=== PATIENT | male | born 1995 | race Caucasian/White ===

== ENCOUNTER 2019-06-19 07:49 | Emergency (ER) | payer OTHER, SELFPAY ==
[2019-06-19 07:50] VITALS: BP 143/90; PULSE 75; RESP 24; TEMP 36.5; O2SAT 100; BMI 26.6
[2019-06-19 08:15] LABS: Add Manual Diff / Slide Review NO; Basophils Absolute Auto 0 /uL (0-100); Basophils Percent Auto 0.6 % (0-2); Eosinophils Absolute Auto 300 /uL (0-450); Eosinophils Percent Auto 3.4 % (2-4); Hematocrit 46.5 % (41-53); Hemoglobin 16.7 g/dL (13.5-17.5); Lymphocytes Absolute Auto 1800 /uL (1100-4500); Lymphocytes Percent Auto 24.9 % (25-40); Mean Corpuscular HGB Conc 35.9 % (30-36); Mean Corpuscular Hemoglobin 33.4 PG (26-34); Mean Corpuscular Volume 93.1 fL (80-100); Monocytes Absolute Auto 400 /uL (0-900); Monocytes Percent Auto 5.8 % (3-14); Neutrophils Absolute Auto 4800 /uL (1500-7000); Neutrophils Percent Auto 65.3 % (50-75); Platelet Count 248 X10^3/uL (150-400); Red Blood Cell Count 4.99 X10^6/uL (4.5-5.9); Red Cell Distribution Width 13.1 % (11.6-14.8); White Blood Cell Count 7.4 X10^3/uL (4.5-11.0)
[2019-06-19 08:25] LABS: Alanine Aminotransferase 24 IU/L (<50); Albumin Globulin Ratio 2.1 (1.0-2.8); Alkaline Phosphatase 58 U/L (38-126); Aspartate Aminotransferase 26 IU/L (17-59); BUN Creatinine Ratio 16.7 (6-22); Bilirubin Total 1.2 mg/dL (0.2-1.3); Blood Urea Nitrogen 15 mg/dL (9-20); Calcium 9.8 mg/dL (8.4-10.2); Carbon Dioxide 25 mmol/L (22-32); Chloride 105 mmol/L (98-107); Estimated Glomerular Filt Rate > 60.0 mL/min (>60); Globulin 2.4 g/dL (1.7-4.1); Glucose 128 mg/dL (70-100); HEMOLYSIS < 15 (0-50); Lipase 59 U/L (23-300); Potassium 4.1 mmol/L (3.4-5.1); Sodium 142 mmol/L (137-145); Total Protein 7.4 g/dL (6.3-8.2)
--- NOTE | 2019-06-19 08:37 | ED_ITS ---
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 On his way to work and had the acute onset of left-sided flank pain radiating to the left lower quadrant and down into the testicles. Described as severe. He presents to the emergency room trying to be cooperative however writing and pain, pale due to the pain and diaphoretic. He denies any previous history of kidney stones and notes that he has not recently been sick at all. Past medical history is otherwise completely unremarkable Related Data Previous Rx's Medication Instructions Recorded oxycodone-acetaminophen 1 tab PO Q8H PRN #10 tab 06/19/19 Allergies Allergy/AdvReac Type Severity Reaction Status Date / Time No Known Drug Allergies Allergy Verified 06/19/19 08:05 Review of Systems Review of Systems Narrative: Denies ? fever ? cough ? cold ? chills ? chest pain ? dyspnea ? orthopnea ? wheezing ? abdominal pain ? change to bowel or bladder habits ? nausea vomiting ? skin changes ? rashes Patient History Social History Smoking Status: Current every day smoker Smoking Status: Current every day smoker tobacco type: vaping alcohol intake frequency: a few times a week Alcohol type: beer and hard liquor Substance Use Type: does not use Exam Narrative Exam Narrative: General: Healthy appearing, in severe distress. Able to give a complete and coherent history. Well-nourished well-developed. Pale and diaphoretic due to pain HEENT: Moist mucous membranes, normal sclera with reactive pupils, Neck: No JVD, supple Respiratory: Lungs are clear to auscultation, no wheezing no rales no rhonchi. Full and symmetrical air movement Cardiac: Tachycardia with regular rhythm, no murmurs, no bruits Abdomen: Soft nontender to palpation, good bowel tones, left flank pain radiating down into the left groin. Skin: Warm and dry, no rashes Neurologic: Grossly neurologically intact with no obvious asymmetries or abnormalities Extremities: No trauma, well perfused Psych: Cooperative, appropriate insight and affect Initial Vital Signs Initial Vital Signs: Vital Signs Temperature 97.7 F 06/19/19 07:50 Pulse Rate 75 06/19/19 07:50 Respiratory Rate 24 06/19/19 07:50 Blood Pressure 143/90 H 06/19/19 07:50 Pulse Oximetry 100 06/19/19 07:50 Course Orders Ordered: ED Orders 06/19/19 07:57 Complete Blood Count AUTO DIFF Stat Comprehensive Metabolic Panel Stat Lipase Stat 06/19/19 08:24 Urine Microscopic Stat 06/19/19 09:28 CT kidney ureter bladder (KUB) Stat Sodium Chloride (Normal Saline 0.9%) 1,000 mls @ 150 mls/hr IV CONT ELMA Last Infusion: 06/19/19 11:36 Dose: 0 mls/hr Documented by: Admin: 06/19/19 08:42 Dose: 150 mls/hr Documented by: JNEN Discontinued Medications Hydromorphone HCl (Dilaudid) 0.5 mg IV NOW ONE Stop: 06/19/19 08:05 Last Admin: 06/19/19 09:28 Dose: 0.5 mg Documented by: MARQUISE Ketorolac Tromethamine (Toradol) 15 mg IV NOW ONE Stop: 06/19/19 08:05 Last Admin: 06/19/19 08:42 Dose: 15 mg Documented by: JENN Ondansetron HCl (Zofran) 4 mg IV NOW ONE Stop: 06/19/19 08:05 Last Admin: 06/19/19 08:42 Dose: 4 mg Documented by: JENN Oxycodone/Acetaminophen (Percocet 5/325) 1 tab PO NOW ONE Stop: 06/19/19 12:18 Reevaluation(s) Reevaluation #1: Toradol was only partially effective in helping with his pain. Will advance to Dilaudid. He will be heading to the CT scanner shortly Reevaluation #2: Feeling significantly better. Still deep internal ache. Safe for home discharge. Reviewed findings of CT scan and suggestion of passed kidney stone with no evidence of retained stones or more to come immediately. Questions were answered. Time: 12:19 Vital Signs Vital signs: Vital Signs - 8 hr 06/19/19 07:50 06/19/19 09:31 06/19/19 11:49 Temperature 97.7 F Pulse Rate 75 70 78 Respiratory Rate 24 18 18 Blood Pressure 143/90 H Blood Pressure [Right Arm] 140/83 135/66 Pulse Oximetry 100 100 98 06/19/19 12:00 Temperature Pulse Rate 80 Respiratory Rate 17 Blood Pressure Blood Pressure [Right Arm] 131/73 Pulse Oximetry 100 MDM - Abdominal Pain Differential Diagnosis Differential diagnosis: Likely abdominal pain, acute appendicitis, calculus of kidney, constipation, diverticulitis, gastroenteritis and small bowel obstruction Medical Records Attestation: I reviewed the patient's medical records. Lab Data Attestation: I reviewed the patient's lab results. Result diagrams: 06/19/19 07:57 06/19/19 07:57 Labs: Lab Results 06/19/19 06/19/19 06/19/19 Range/Units 07:57 07:57 08:24 WBC 7.4 (4.5-11.0) X10^3/uL RBC 4.99 (4.5-5.9) X10^6/uL Hgb 16.7 (13.5-17.5) g/dL Hct 46.5 (41-53) % MCV 93.1 (80-100) fL MCH 33.4 (26-34) PG MCHC 35.9 (30-36) % RDW 13.1 (11.6-14.8) % Plt Count 248 (150-400) X10^3/uL Neut % (Auto) 65.3 (50-75) % Lymph % (Auto) 24.9 L (25-40) % Merrick % (Auto) 5.8 (3-14) % Eos % (Auto) 3.4 (2-4) % Baso % (Auto) 0.6 (0-2) % Neut # (Auto) 4800 (5438-2060) /uL Lymph # (Auto) 1800 (2160-1483) /uL Merrick # (Auto) 400 (0-900) /uL Eos # (Auto) 300 (0-450) /uL Baso # (Auto) 0 (0-100) /uL Sodium 142 (137-145) mmol/L Potassium 4.1 (3.4-5.1) mmol/L Chloride 105 (98-107) mmol/L Carbon Dioxide 25 (22-32) mmol/L BUN 15 (9-20) mg/dL Creatinine 0.90 (0.66-1.25) mg/dL Estimated GFR > 60.0 (>60) mL/min BUN/Creatinine Ratio 16.7 (6-22) Glucose 128 H (70-100) mg/dL Calcium 9.8 (8.4-10.2) mg/dL Total Bilirubin 1.2 (0.2-1.3) mg/dL AST 26 (17-59) IU/L ALT 24 (<50) IU/L Alkaline Phosphatase 58 (38-126) U/L Total Protein 7.4 (6.3-8.2) g/dL Albumin 5.0 (3.5-5.0) g/dL Globulin 2.4 (1.7-4.1) g/dL Albumin/Globulin Ratio 2.1 (1.0-2.8) Lipase 59 (23-300) U/L Urine RBC 1-5/hpf (0-5/HPF) Urine WBC 0-1/hpf (0-5/HPF) Urine Bacteria Few (2-10) H (None) Urine Mucus 1+ H (Negative) Ur Culture Indicated? Cult not indicated Point of care testing: Urine Dip Bedside Urine Glucose Negative Bedside Urine Bilirubin - Negative Bedside Urine Ketone - Negative Urine Specific Bronson 1.020 Bedside Urine Occult Blood + Bedside Urine pH 6.0 Bedside Urine Protein +/- 15 Bedside Urine Urobilinogen - Negative Bedside Urine Nitrite - Negative Bedside Urine Leukocytes - Negative Esterase Imaging Data CT kub: Radiologist's impression: MPRESSION: A urinary tract stone is not seen, no urinary tract inflammation is found. There is, however, slight asymmetric prominence of the left ureter when compared to that on the right and also when comparing the renal pelvis and renal collecting system on the left when compared to the right. This pattern can result from recent passage of a calculus through the left urinary tract. A calculus within the bladder or urethra is not found, however. Dictated by: Redd Blue M.D. on 06/19/2019 at 9:55 Discharge Plan Departure Patient Disposition: Home Clinical Impression: Calculus of kidney Instructions: DI for Kidney Stones Activity Restrictions/Additional Instructions: Thank you for coming in today It looks like you have successfully passed your very 1st kidney stone. There is no evidence that there is another stone to come in the immediate future. You are already doing the correct thing by drinking plenty of water and avoiding soda. Do expect to have some tenderness over the next day or two, but with the stone already passed it should resolve fairly quickly I have given you a prescription for Percocet, a narcotic pain medication to use if you have severe pain. Ibuprofen should work well for moderate to mild pain. Prescriptions: New oxycodone-acetaminophen 5-300 mg tablet 1 tab PO Q8H PRN (Reason: pain) Qty: 10 RF: 0 Stand Alone Forms: Work Release Note
[2019-06-19] MEDS: SODIUM CHLORIDE 0.9% 1,000 ML 150 ML IV (08:42)
[2019-06-19] MEDS: ONDANSETRON 4 MG/2 ML INJ IV (08:42)
[2019-06-19] MEDS: KETOROLAC 60 MG/2 ML VIAL 15 MG IV (08:42)
[2019-06-19 08:56] LABS: Bacteria Urine Few (2-10); Mucus Urine 1+ (Negative); RBC Urine 1-5/HPF (0-5/HPF); WBC Urine 0-1/HPF (0-5/HPF)
[2019-06-19 08:57] LABS: Culture Indicated Urine Cult Not Indicated
[2019-06-19] MEDS: HYDROMORPHONE 0.5 MG INJ IV (09:28)
--- NOTE | 2019-06-19 09:28 | DI.CT.S_ITS ---
PROCEDURE: CT KIDNEY URETER BLADDER (KUB) INDICATIONS: acute L flank/LLQ pain, concern for stone TECHNIQUE: Noncontrast 5 mm thick sections acquired from the diaphragms to the symphysis. 5 mm thick coronal and sagittal reformats were then performed. For radiation dose reduction, the following was used: automated exposure control, adjustment of mA and/or kV according to patient size. COMPARISON: None. FINDINGS: Image quality: Excellent. Lung bases: Lung bases are clear. Heart size is normal. Urinary system: Both kidneys are normal in size. No kidney stones. No significant left-sided hydronephrosis or perinephric fat stranding, but there is slight asymmetric prominence of the left collecting system and renal pelvis. Both ureters appear non-dilated throughout their expected courses but the left ureter is slightly asymmetrically more prominent than that on the right. Bladder wall thickness is normal; no calcified bladder stones. Note is made of a slight degree of faint medullary calcifications bilaterally. No formed calculus is associated. Other solid organs: Liver is normal in size. Gallbladder appears normal. Pancreas is normal in contours. Spleen is normal in size. No adrenal nodules. Peritoneum and bowel: Unenhanced bowel loops demonstrate normal wall thickness and caliber. No free fluid or air. Nodes and vessels: No retroperitoneal or mesenteric adenopathy by size criteria. Aorta and inferior vena cava are normal in caliber. Abdominal wall: No ventral hernias. Pelvis: No free pelvic fluid. No inguinal hernias or adenopathy. Bones: No suspicious bony lesions. No vertebral body compression fractures. IMPRESSION: A urinary tract stone is not seen, no urinary tract inflammation is found. There is, however, slight asymmetric prominence of the left ureter when compared to that on the right and also when comparing the renal pelvis and renal collecting system on the left when compared to the right. This pattern can result from recent passage of a calculus through the left urinary tract. A calculus within the bladder or urethra is not found, however. Dictated by: Redd Blue M.D. on 06/19/2019 at 9:55 Approved by: Redd Blue M.D. on 06/19/2019 at 9:58
[2019-06-19 09:31] VITALS: BP 140/83; PULSE 70; RESP 18; O2SAT 100
[2019-06-19 11:49] VITALS: BP 135/66; PULSE 78; RESP 18; O2SAT 98
[2019-06-19 12:00] VITALS: BP 131/73; PULSE 80; RESP 17; O2SAT 100
[2019-06-19 12:22] VITALS: BP 131/73; PULSE 86; RESP 18; O2SAT 100
== END 2019-06-19 12:22 | disposition home or self-care (01) ==
PROVIDERS: Emergency Provider Emergency Medicine
DX: N20.0 Calculus of kidney (principal)
CPT/HCPCS: 36415; 74176; 80053; 81003; 81015; 83690; 85025; 96374; 96375; 99284; J1170; J1885; J2405